=== PATIENT | male | born 1950 | race Caucasian/White ===

== ENCOUNTER → 2025-03-09 | Outpatient (CLI) | payer MEDICARE, BC, SELFPAY ==
[2025-03-09 16:54] LABS: Alanine Aminotransferase 18 U/L (10-49); Albumin, Serum 4.2 gm/dL (3.4-4.8); Alkaline Phosphatase 107 U/L (46-116); Aspartate Amino Transferase 17 U/L (0-34); Bilirubin,Direct < 0.1 mg/dL (0.0-0.3); Bilirubin,Total 0.3 mg/dL (0.3-1.2); Cardiac Risk Estimate 3.4 RATIO (4.0-6.7); Cholesterol 140 mg/dL (132-200); HDL Cholesterol 41 mg/dL (40-60); LDL Cholesterol,Calculated 83 mg/dL (0-130); Total Protein 6.7 gm/dL (5.7-8.2); Triglycerides 81 mg/dL (30-150)
== END | disposition home or self-care (01) ==
LOC: COPL 14:39
PROVIDERS: PCP Family Medicine; Referring Provider Internal Medicine Cardiovascular Disease; Visit Provider Internal Medicine Cardiovascular Disease
DX: I10 Essential (primary) hypertension (principal); I65.22 Occlusion and stenosis of left carotid artery; E78.00 Pure hypercholesterolemia, unspecified
CPT/HCPCS: 36415; 80061; 80076